=== PATIENT | male | born 1980 | race Caucasian/White ===

== ENCOUNTER 2021-10-23 08:31 | Emergency (ER) | payer MEDICAID ==
[~2021-10-23] VITALS: Ht 170.2 cm; Wt 59.0 kg
--- NOTE | 2021-10-23 08:31 | NUR ---
PT BIBA TO ER BED 05.
[2021-10-23 08:36] VITALS: BP 130/83
--- NOTE | 2021-10-23 08:47 | NUR ---
PT BECAME VERBALLY AGGRESSIVE TOWARDS STAFF. PT NOT COOPERATIVE DURING ASSESSMENT, PT NOT LETTING ME COMPLETE ASSESSMENT, ONLY STATING THAT HE WANTED PAIN MEDS. PT DENYING HI/SI AT THIS TIME. PT ELOPED FROM FACILITY. DR GAYTAN MADE AWARE.
== END 2021-10-23 08:47 | disposition left against medical advice (07) ==
LOC: MED 08:31
DX: M25.511 Pain in right shoulder (principal)
CPT/HCPCS: 99283

== ENCOUNTER 2021-10-23 13:13 | Inpatient (IN) | payer MEDICAID ==
[~2021-10-23] VITALS: Ht 162.6 cm; Wt 65.8 kg
--- NOTE | 2021-10-23 13:13 | NUR ---
BIBA TO ER BED 6
[2021-10-23 13:19] VITALS: BP 149/92
[2021-10-23] MEDS ORDERED: NACL 0.9% 1,000 ML IV ONE (13:55)
[2021-10-23 14:16] LABS: BASOPHILS % (AUTO) 0.4 % (0.0-2.0); EOSINOPHILS % (AUTO) 0.9 % (0.0-4.0); HEMATOCRIT 47.3 % (36-52); HEMOGLOBIN 16.1 g/dL (12.0-18.0); LYMPHOCYTES # (AUTO) 1.1 K/uL (2.0-11.5); LYMPHOCYTES % (AUTO) 21.7 % (20.5-51.1); MEAN CORPUSCULAR HEMOGLOBIN 32 pg (27-31); MEAN CORPUSCULAR HGB CONC 34 g/dL (33-37); MONOCYTES # (AUTO) 0.6 K/uL (0.8-1.0); MONOCYTES % (AUTO) 11.2 % (1.7-9.3); NEUTROPHILS # (AUTO) 3.3 K/uL (1.8-7.7); NEUTROPHILS % (AUTO) 65.8 % (42.2-75.2); PLATELET COUNT (AUTO) 151 K/uL (140-450); RED BLOOD CELL COUNT(AUTO) 5.09 MIL/uL (4.20-6.10); RED CELL DISTRIBUTION WIDTH 13.2 % (11.6-13.7); WHITE BLOOD COUNT (AUTO) 4.9 K/uL (4.8-10.8)
[2021-10-23 14:30] LABS: ALBUMIN 4.3 g/dL (3.4-5.0); ANION GAP 8.9 (8-16); CARBON DIOXIDE 30.5 mmol/L (21-32); CREATININE 0.9 mg/dL (0.6-1.3); POTASSIUM 3.4 mmol/L (3.5-5.1); TOTAL BILIRUBIN 1.4 mg/dL (0.0-1.0)
[2021-10-23] MEDS ORDERED: ASPIRIN 81 MG TAB.CHEW PO ONE (15:00)
--- NOTE | 2021-10-23 15:33 | NUR ---
41YO MALE PT BIBA FROM STREET C/O GENERALIZED PAIN AND WEAKNESS. PER [facility] , PT WAS FOUND ON STREET ,HOMELESS, IN DISTRESS AND HAVING AUDITORY HALLUCINATIONS. PT STATES PAIN BUT NOT UNABLE TO SPECIFY LOCATION OR QUALITY. PT UNCOOPERATIVE WITH ASSESMENT. PT HAS SCAR VERTICALLY ACROSS CHEST WHICH HE STATES IS FROM HEART SURGERY APPX 8 YEARS AGO. PT PRESENTS WITH ALOC AND UNKEPT HYGIENE. PT WILL COMMUNICATE IN [place] WITH EYE KEPT CLOSED. PT AAOX4 , SKIN IN TACT AND WARM. VITALS WITHIN NORMAL RANGE . PT PUT ON MONITOR, BED AT LOWEST POSITION AND BED RAILS UPX2. HX: UNABLE TO OBTAIN NKA
[2021-10-23 15:43] LABS: PROTHROMBIN TIME 10.1 secs (10.8-13.4)
--- NOTE | 2021-10-23 15:50 | NUR ---
# 15 FR Straight catheter utilizing sterile technique. Immediate return of 95 yellow/clear urine noted. Pt tolerated procedure well.
--- NOTE | 2021-10-23 15:57 | NUR ---
JAVIER walked to lab, handed to CPT Sheri
[2021-10-23 16:36] LABS: BARBITURATE, URINE NEGATIVE ng/ml (NEG <=200); BENZODIAZEPINE, URINE NEGATIVE ng/mL (NEG <=200); CANNABINOID, URINE NEGATIVE ng/mL (NEG <=50); COCAINE, URINE NEGATIVE ng/mL (NEG <=300); OPIATE, URINE NEGATIVE ng/mL (NEG <=2000); PHENCYCLIDINE SCREEN,URINE NEGATIVE ng/mL (NEG <=25)
[2021-10-23] MEDS: DEXT 5% /NACL 0.9% 1,000 ML IV SCH ×2 (16:42→17:00)
--- NOTE | 2021-10-23 16:50 | NUR ---
Patient will be admitted to care of PRADEEP CAMPOS. Admited to TELE. Will go to room 120B Belongings list completed. Report to GIRISH SMITH.
--- NOTE | 2021-10-23 16:51 | NUR ---
The patient's care was reviewed and supervised by Raegan Breaux RN.
[2021-10-23 17:00] VITALS: BP 140/90
--- NOTE | 2021-10-23 17:00 | NUR ---
PATIENT ARRIVED VIA GURNEY WHEELED BY 2 ED NURSE. RN GONZALO GAVE BED SIDE REPORT FOR CONTINUITY OF CARE. PATIENT TOO SLEEPY BUT ABLE TO RESPONDS WHEN ASKED QUESTION. ALSO NOTED WITH OCCASIONAL CONFUSION AND HALLUCINATION. RESPIRATION EVEN AND NOT LABORED. NO SHORTNESS OF BREATH ON ROOM AIR. IV SITE ON RIGHT ARM INTACT NO SIGN AND SYMPTOMS OF INFECTION. IV RUNNING AT 80 CC OF D5 NS. ORIENTED TO ROOM, TOILET, VISITING HOURS, CALL LIGHT WITH IN EASY REACH.ON FALL PRECAUTION.
[2021-10-23] MEDS ORDERED: HYDROcodone/APAP 7.5/325 MG 1 TAB PO PRN (17:35)
[2021-10-23] MEDS ORDERED: DOCUSATE SODIUM 100 MG GELCAP PO PRN (17:35)
[2021-10-23] MEDS ORDERED: ZOLPIDEM 5 MG TAB PO PRN (17:35)
[2021-10-23] MEDS ORDERED: guaiFENesin DM 200/20 MG-10 ML 10 ML UDC PO PRN (17:35)
[2021-10-23] MEDS ORDERED: POTASSIUM CHLORIDE 10 MEQ TABER PO PRN (17:35)
[2021-10-23] MEDS ORDERED: ONDANSETRON 4 MG/2 ML VIAL IM/IVP PRN (17:35)
[2021-10-23] MEDS ORDERED: ACETAMINOPHEN 325 MG TAB PO PRN (17:35)
[2021-10-23 18:18] LABS: CHOL/HDL RATIO 3.5 (1-4.5); FREE T4 (FREE THYROXINE) 1.26 ng/dL (0.76-1.46); MAGNESIUM 1.9 mg/dL (1.8-2.4); PHOSPHORUS 4.1 mg/dL (2.5-4.9); THYROID STIMULATING HORMONE 0.6 uIU/mL (0.34-3.74)
--- NOTE | 2021-10-23 18:59 | NUR ---
GIVEN K DUR 40 MEQ FOR POTASSIUM LEVEL OF 3.4
--- NOTE | 2021-10-23 19:29 | NUR ---
GAVE REPORT TO COAT IRONER HAND NURSE FOR CONTINUITY OF CARE.
--- NOTE | 2021-10-23 19:33 | NUR ---
RECEIVED PATIENT FROM AM NURSE FOR CONTINUITY OF CARE.PT IS STABLE
[2021-10-23 20:00] VITALS: BP 121/70
--- NOTE | 2021-10-23 21:30 | NUR ---
ALL SCHEDULED MEDICATIONS GIVEN,NO ADVERSE REACTIONS NOTED
[2021-10-24] VITALS: BP 115/82
--- NOTE | 2021-10-24 01:00 | NUR ---
PATIENT IS AWAKE,NO COMPLAIN OF PAIN,NO SOB NOTED
--- NOTE | 2021-10-24 03:00 | NUR ---
PATIENT ASLEEP,BREATHING EVEN AND UNLABORED,NO DISTRESS NOTED
[2021-10-24 04:00] VITALS: BP 130/82
[2021-10-24 05:40] LABS: BASOPHILS % (AUTO) 0.7 % (0.0-2.0); EOSINOPHILS # (AUTO) 0.1 K/uL (0-0.4); EOSINOPHILS % (AUTO) 2.4 % (0.0-4.0); HEMATOCRIT 40.6 % (36-52); HEMOGLOBIN 13.7 g/dL (12.0-18.0); LYMPHOCYTES # (AUTO) 1.1 K/uL (2.0-11.5); LYMPHOCYTES % (AUTO) 25.6 % (20.5-51.1); MEAN CORPUSCULAR HEMOGLOBIN 32 pg (27-31); MEAN CORPUSCULAR HGB CONC 34 g/dL (33-37); MONOCYTES # (AUTO) 0.4 K/uL (0.8-1.0); NEUTROPHILS # (AUTO) 2.7 K/uL (1.8-7.7); NEUTROPHILS % (AUTO) 61.3 % (42.2-75.2); PLATELET COUNT (AUTO) 127 K/uL (140-450); RED BLOOD CELL COUNT(AUTO) 4.32 MIL/uL (4.20-6.10); RED CELL DISTRIBUTION WIDTH 13.2 % (11.6-13.7); WHITE BLOOD COUNT (AUTO) 4.4 K/uL (4.8-10.8)
[2021-10-24 05:53] LABS: ANION GAP 10.4 (8-16); CARBON DIOXIDE 27.2 mmol/L (21-32); CREATININE 0.8 mg/dL (0.6-1.3); POTASSIUM 3.6 mmol/L (3.5-5.1)
--- NOTE | 2021-10-24 06:00 | NUR ---
PATIENT IS AWAKE, NO COMPLAIN OF PAIN OR SOB
--- NOTE | 2021-10-24 07:30 | NUR ---
RECEIVED BEDSIDE REPORT FROM [employer]OT[employer] GUEST SERVICE AGENT NURSE FOR CONTINUITY OF CARE. PT IS AWAKE. A&OX2. ON RA WITH BREATHING UNLABORED. AMBULATORY INDEPENDENTLY. CONTINENT OF THE BOWEL AND BLADDER. SKIN IS WARM, DRY, AND INTACT. RIGHT FA 22 GAUGE D5 NS AT 100 ML PER HOUR PER ORDER. PT IS STABLE. PLAN OF CARE DISCUSSED.
--- NOTE | 2021-10-24 07:45 | NUR ---
WALKED INTO TO ROOM TO BRING PT SNACKS REQUESTED. PT NOT IN ROOM. TELE BOX ON BED, IV WAS REMOVED BY PT, AND PTS CELL PHONE AT BEDSIDE. PT NOT FOUND ON UNIT. POSSIBLY LEFT OUTSIDE BACK DOOR. PT ELOPED. NOTIFIED SUPERVISOR RESIDENTIAL, AFIA, HE IS AWARE. NOTIFIED SECURITY AND HE COLLECTED CELL PHONE OF PT. NOTIFIED EJ, DIRECTOR.
--- NOTE | 2021-10-24 08:00 | NUR ---
NOTIFIED DR. FERNÁNDEZ ABOUT THE PT ELOPING. DR PINA.
[2021-10-24 08:07] LABS: T4 (THYROXINE) 8.7 ug/dL (4.5-12.0)
--- NOTE | 2021-10-24 08:27 | NUR ---
[facility] VERIFICATION NUMBER [id number].
[2021-10-24] MEDS ORDERED: PANTOPRAZOLE 40 MG TABEC PO SCH (09:00)
== END 2021-10-24 07:45 | disposition left against medical advice (07) | DRG 861 ==
LOC: MED 13:13 → MTU 16:23
PROVIDERS: ADMIT Family Medicine; ATTEND Family Medicine
DX: R41.82 Altered mental status, unspecified (principal); I24.8 Other forms of acute ischemic heart disease; E86.0 Dehydration; R53.1 Weakness; E11.9 Type 2 diabetes mellitus without complications; E78.5 Hyperlipidemia, unspecified; Z53.29 Procedure and treatment not carried out because of patient's decision for other reasons; Z20.822 Contact with and (suspected) exposure to COVID-19; F15.90 Other stimulant use, unspecified, uncomplicated
CPT/HCPCS: 36415; 70450; 71045; 73030; 80048; 80053; 80305; 82150; 83036; 83690; 83735; 83880; 84100; 84436; 84439; 84443; 84479; 84484; 85025; 85610; 85730; 87081; 93005; 96360; 99291